=== PATIENT | female | born 1990 | race Caucasian/White ===

== ENCOUNTER 2017-12-14 12:00 | Emergency (ER) | payer BC ==
[2017-12-14 12:08] VITALS: PULSE 64; RESP 16; TEMP 98.6
--- NOTE | 2017-12-14 12:20 | CPEKG ---
Heart Rate: 60 RR Interval: 1000 P-R Interval: 152 QRSD Interval: 80 QT Interval: 396 QTC Interval: 396 P [place]: 64 QRS [place]: 85 T Wave [place]: 64 EKG Severity - NORMAL ECG - EKG Impression: SINUS RHYTHM Electronically Signed By: Sebas Fitzgerald 17-Dec-2017 09:46:49
--- NOTE | 2017-12-14 12:26 | EDPHY ---
H & P Stated Complaint: L shoulder, anterior chest pain worse with mvmt and deep breathing Time Seen by Provider: 12/14/17 12:25 HPI/ROS: HPI: This is a 27-year-old female who presents with Chief Complaint: L shoulder, anterior chest pain worse with movement and deep breathing Location: Left anterior shoulder/upper anterior chest left side Quality: Pain Duration: Worse with lying flat on her back and deep breathing Signs and Symptoms: no shortness of breath at rest, no shortness of breath on exertion, no cough, + chest pain, no palpitations, no lower extremity edema, no wheezing, no orthopnea, no paroxysmal nocturnal dyspnea, no fever, no injury/ trauma, no hemoptysis, no carpal pedal spasms Timing: Acute Severity: Moderate Context: Patient is generally healthy, nonsmoker, does not take control pills, presents with sudden onset upon waking up this morning of left anterior shoulder and upper anterior chest left side that is worsened when she lies flat on her back and with deep breathing. She is adamant that is not musculoskeletal in nature. She is right-hand dominant. She denies any recent upper respiratory symptoms including no fever. She denies palpitations or shortness of breath. She does not have any lower extremity edema. No recent long distance travel. LMP 2-3 weeks ago. Patient denies any injury/overuse/ trauma. Modifying Factors: She has tried no [id number] medications Comment: ROS: see HPI Constitutional: No fever, no chills, no weight loss Eyes: No blurred vision Respiratory: No shortness of breath, no cough Cardiovascular: No chest pain, no palpitations, no lower extremity edema Gastrointestinal: No nausea, no vomiting, no diarrhea Genitourinary: No dysuria Extremities: No myalgias Neurologic: No weakness, no numbness Skin: No rashes Hematologic: No bruising, no bleeding MEDICAL/SURGICAL/SOCIAL HISTORY: Medical history: Generally healthy. Does not take any regular medications. Surgical history: Denies Social history: Employed. CONSTITUTIONAL: Extremely well-appearing young adult white female, awake and alert, no obvious distress HEENT: Atraumatic and normocephalic, PERRL, EOMI. Tympanic membranes clear. Oropharynx clear, no exudate and moist pink mucosa. Airway patent. No lymphadenopathy. No meningismus. Cardiovascular: Normal S1/S2, regular rate, regular rhythm, without murmur rub or gallop. PULMONARY/CHEST: Symmetrical and nontender. Clear to auscultation bilaterally. Good air movement. No accessory muscle usage. ABDOMEN: Soft, nondistended, nontender, no rebound, no guarding, no peritoneal signs, no masses or organomegaly. No CVAT. EXTREMITIES: 2/2 pulses, strength 5/5, left SHOULDER: Arc test abduction to 180, abduction to 45, horizontal flexion 130, horizontal extension to 45, deltoid strength 5/5. No pain with Neer test/Lewis test (impingement). No Tenderness to palpation over AC joint. no deformities, no clubbing, no cyanosis or edema. NEUROLOGICAL: no focal neuro deficits. GCS 15. SKIN: Warm and dry, multiple tattoos noted, no erythema. no rash. Good capillary refill. Source: Patient Exam Limitations: No limitations - Personal History LMP (Females 10-55): 22-28 Days Ago - Medical/Surgical History Hx Asthma: No Hx Chronic Respiratory Disease: No Hx Diabetes: No Hx Cardiac Disease: No Hx Renal Disease: No Hx Cirrhosis: No Hx Alcoholism: No Hx HIV/AIDS: No Hx Splenectomy or Spleen Trauma: No Other PMH: denies - Social History Smoking Status: Never smoked Constitutional: Initial Vital Signs Temperature (C) 37.0 C 12/14/17 12:05 Heart Rate 64 12/14/17 12:05 Respiratory Rate 16 12/14/17 12:05 Blood Pressure 101/80 12/14/17 12:05 O2 Sat (%) 98 12/14/17 12:05 O2 Delivery Mode Room Air Allergies/Adverse Reactions: Penicillins Allergy (Verified 02/23/15 19:30) Home Medications: Medication Instructions Recorded NK [No Known Home Meds] 12/14/17 Medical Decision Making - Diagnostics EKG Interpretation: 12 lead EKG: Indication: Chest pain Rhythm: Normal sinus rhythm, rate 60 beats per minute [place]: Normal Intervals: Normal QRS: Normal ST segments: Normal INTERPRETATION: No acute ischemic changes/arrhythmia/Spodick's signs The 12 lead EKG was interpreted by myself and with attending. Imaging Results: Imaging Impressions Chest X-Ray 12/14/17 12:37 Impression: Normal. No explanation for pain. ED Course/Re-evaluation: EKG, chest x-ray, labs ordered EKG shows normal sinus rhythm; no signs of pericarditis. Labs are grossly unremarkable including normal D-dimer and ESR. Chest x-ray my read shows: No effusion, no opacity, no pneumothorax, no widened mediastinum Advise take ibuprofen scheduled, supportive care This patient was seen under the supervision of my secondary supervising physician. I evaluated care for this patient independently. Differential Diagnosis: Chest pain including but not limited to myocardial ischemia, pulmonary embolus, pericarditis, chest wall pain, pleural inflammation and pulmonary infectious causes. - Data Points Laboratory Results: Laboratory Results 12/14/17 12:17 12/14/17 12:17 12/14/17 12/14/17 12/14/17 12:17 12:17 12:17 WBC 7.00 10^3/uL 10^3/uL (3.80-9.50) RBC 4.25 10^6/uL 10^6/uL (4.18-5.33) Hgb 13.9 g/dL g/dL (12.6-16.3) Hct 40.3 % % (38.0-47.0) MCV 94.8 fL fL (81.5-99.8) MCH 32.7 pg pg (27.9-34.1) MCHC 34.5 g/dL g/dL (32.4-36.7) RDW 11.9 % % (11.5-15.2) Plt Count 191 10^3/uL 10^3/uL (150-400) MPV 10.9 fL fL (8.7-11.7) Neut % (Auto) 70.3 % % (39.3-74.2) Lymph % (Auto) 23.7 % % (15.0-45.0) [place] % (Auto) 4.3 % L % (4.5-13.0) Eos % (Auto) 0.7 % % (0.6-7.6) Baso % (Auto) 0.7 % % (0.3-1.7) Nucleat RBC Rel Count 0.0 % % (0.0-0.2) Absolute Neuts (auto) 4.92 10^3/uL 10^3/uL (1.70-6.50) Absolute Lymphs (auto) 1.66 10^3/uL 10^3/uL (1.00-3.00) Absolute Monos (auto) 0.30 10^3/uL 10^3/uL (0.30-0.80) Absolute Eos (auto) 0.05 10^3/uL 10^3/uL (0.03-0.40) Absolute Basos (auto) 0.05 10^3/uL 10^3/uL (0.02-0.10) Absolute Nucleated RBC 0.00 10^3/uL 10^3/uL (0-0.01) Immature Gran % 0.3 % % (0.0-1.1) Immature Gran # 0.02 10^3/uL 10^3/uL (0.00-0.10) ESR 4 MM/HR MM/HR (0-20) D-Dimer 0.28 ug/mLFEU ug/mLFEU (0.00-0.50) Sodium 143 mEq/L mEq/L (135-145) Potassium 3.8 mEq/L mEq/L (3.5-5.2) Chloride 107 mEq/L mEq/L (97-110) Carbon Dioxide 22 mEq/l mEq/l (22-31) Anion Gap 14 mEq/L mEq/L (8-16) BUN 10 mg/dL mg/dL (7-23) Creatinine 0.6 mg/dL mg/dL (0.6-1.0) Estimated GFR > 60 Glucose 95 mg/dL mg/dL (70-100) Calcium 9.7 mg/dL mg/dL (8.5-10.4) Medications Given: Discontinued Medications Ketorolac Tromethamine (Toradol) 30 mg IVP EDNOW ONE Stop: 12/14/17 13:11 Last Admin: 12/14/17 13:26 Dose: 30 mg Departure - Departure Disposition: Home, Routine, Self-Care Clinical Impression: Atypical chest pain Condition: Good Instructions: Noncardiac Chest Pain (ED) Additional Instructions: Take Ibuprofen 600-800 mg every 8 hr with food x 7 days or until symptoms resolve. If symptoms do not resolve after 5-7 days; follow-up with primary care provider for further evaluation including pericarditis. Return to the ER immediately if you experience new, continued or worsened chest pain, chest pain that radiates, chest pain accompanied by exertion or associated with shortness of breath, sweating, nausea, dizziness, back pain, or any other symptoms that concern you. Referrals: ELISE MANZO [Other] - 5-7 days, if not improved
[2017-12-14 12:44] LABS: PLATELET COUNT 191 10^3/uL (150-400)
[2017-12-14] MEDS ORDERED: KETOROLAC 30 MG/1 ML SDV IVP ONE (13:10)
[2017-12-14 13:28] VITALS: BP 103/66; O2SAT 97
== END 2017-12-14 13:35 | disposition home or self-care (01) ==
DX: R07.89 Other chest pain (principal)
CPT/HCPCS: 96374; J1885